=== PATIENT | male | born 1980 | race Caucasian/White ===

== ENCOUNTER 2022-09-02 17:08 | Observation (INO) | payer OTHER ==
[~2022-09-02] VITALS: Ht 185.4 cm; Wt 135.2 kg
[~2022-09-02 17:08] MED LIST: LIDOCAINE HCL 2% LOCAL INJ 5 ML SDV VIAL INJ ONE; PROPOFOL IV EMULSION 10 MG/ML 20 ML VIAL ONE
[2022-09-02 20:00] VITALS: BP 122/74
[2022-09-02 21:00] VITALS: BP 122/74
[2022-09-02] MEDS: DEXTROSE 5%/0.45% SOD CHL 1,000 ML IV SCH (21:00)
[2022-09-02] MEDS ORDERED: ACETAMINOPHEN 325 MG TAB PO PRN (21:00)
[2022-09-02] MEDS: HYDROMORPHONE 1MG/1ML INJ IV PRN (22:21)
[2022-09-02] MEDS: ONDANSETRON HCL INJ 2MG/ML 2ML 2 MG/ML VIAL IV PRN (22:35)
[2022-09-03] VITALS (8 sets, daily range): BP systolic 105–134; BP diastolic 58–79
[2022-09-03] MEDS: ONDANSETRON HCL INJ 2MG/ML 2ML 2 MG/ML VIAL IV PRN ×5 (02:35→20:03)
[2022-09-03] MEDS: HYDROMORPHONE 1MG/1ML INJ IV PRN ×5 (02:35→20:03)
[2022-09-03] MEDS ORDERED: ADDERALL 20 MG20 MG PO (02:37)
[2022-09-03] MEDS ORDERED: LUNESTA2 MG PO (02:39)
[2022-09-03] MEDS: DEXTROSE 5%/0.45% SOD CHL 1,000 ML IV SCH ×3 (05:00→20:49)
[2022-09-03 05:47] LABS: BASOPHILS % 0.1 % (0.0-1.0); HEMATOCRIT 48.2 % (38.2-49.6); HEMOGLOBIN 16.2 g/dL (14.0-18.0); LYMPHOCYTES # (AUTO) 1.2 (1.0-3.2); LYMPHOCYTES % 11.7 % (18.0-39.1); MEAN CORPUSCULAR HEMOGLOBIN 32.3 pg (28-32); MEAN CORPUSCULAR HGB CONC 33.6 g/dL (31-35); MONOCYTES # (AUTO) 0.9 (0.2-0.8); MONOCYTES % 8.3 % (4.4-11.3); NEUTROPHILS # (AUTO) 8.4 (2.1-6.9); NEUTROPHILS % 79.4 % (38.7-80.0); PLATELET COUNT 273 x10e3/uL (140-360); RED BLOOD COUNT 5.02 x10e6/uL (4.3-5.7); RED CELL DISTRIBUTION WIDTH 11.6 % (11.7-14.4)
[2022-09-03 06:17] LABS: ANION GAP 14.3 mmol/L (8-16); CALCIUM 8.8 mg/dL (8.4-10.2); CREATININE, SERUM 1.45 mg/dL (0.72-1.25); POTASSIUM 4.3 mmol/L (3.5-5.1)
[2022-09-03] MEDS: DONNATAL/LIDOCAINE/MAALOX 30 ML SUSP PO SCH ×2 (17:14→21:23)
[2022-09-03] MEDS ORDERED: BISACODYL 5 MG TAB EC PO ONE ×2 (23:15→23:45)
[2022-09-03] MEDS ORDERED: TEMAZEPAM 7.5 MG CAP PO PRN (23:45)
[2022-09-04] VITALS: BP 111/69
[2022-09-04] MEDS ORDERED: BISACODYL 5 MG TAB EC PO ONE (00:15)
[2022-09-04 04:00] VITALS: BP 122/60
[2022-09-04] MEDS: DEXTROSE 5%/0.45% SOD CHL 1,000 ML IV SCH (04:26)
[2022-09-04] MEDS ORDERED: PEG (High)/E-LYTE SOLN 4,000 ML BTL PO ONE (05:00)
[2022-09-04] MEDS: ONDANSETRON HCL INJ 2MG/ML 2ML 2 MG/ML VIAL IV PRN ×2 (05:39→09:53)
[2022-09-04] MEDS: HYDROMORPHONE 1MG/1ML INJ IV PRN ×2 (05:40→09:49)
[2022-09-04 08:00] VITALS: BP 125/64
[2022-09-04 08:21] VITALS: BP 125/64
[2022-09-04] MEDS: DONNATAL/LIDOCAINE/MAALOX 30 ML SUSP PO SCH (09:00)
[2022-09-04 11:28] VITALS: BP 128/85
[2022-09-04 16:50] VITALS: BP 133/94
== END 2022-09-04 17:29 | disposition home or self-care (01) ==
LOC: MED/SURG3 18:27
DX: K51.90 Ulcerative colitis, unspecified, without complications (principal); K29.00 Acute gastritis without bleeding; K22.10 Ulcer of esophagus without bleeding; K29.80 Duodenitis without bleeding; K44.9 Diaphragmatic hernia without obstruction or gangrene; R06.83 Snoring; K63.89 Other specified diseases of intestine; K21.9 Gastro-esophageal reflux disease without esophagitis; F43.10 Post-traumatic stress disorder, unspecified; G47.00 Insomnia, unspecified; Z90.49 Acquired absence of other specified parts of digestive tract; Z01.812 Encounter for preprocedural laboratory examination; Z20.822 Contact with and (suspected) exposure to COVID-19
CPT/HCPCS: 0223U; 36415; 43239; 43450; 80048; 85025; 88304; 88305; 88312; 88342; 99251; G0378; J1170; J2001; J2405; J2543